=== PATIENT | female | born 1965 | race African-American/Black ===

== ENCOUNTER 2017-01-26 11:11 | Observation (INO) | payer OTHER, MEDICAID ==
[~2017-01-26] VITALS: Ht 162.6 cm; Wt 127.0 kg
[~2017-01-26 11:11] MED LIST: BENA20TA14 PO; LORA-655 PO
[2017-01-26 12:12] LABS: Basophils # (auto) 0 uL; Basophils % (auto) 0.6 % (0.0-2.0); Eosinophils # (auto) 0.1 uL; Eosinophils % (auto) 2.3 % (0.0-7.0); Hematocrit 40.6 % (36.0-46.0); Hemoglobin 13.6 g/dL (12.2-16.2); Mean Corpuscular Hemoglobin 27.4 pg (28.0-32.0); Mean Corpuscular Hgb Conc. 33.4 g/dL (32.0-36.0); Mean Corpuscular Volume 82.1 fL (80.0-100.0); Mean Platelet Volume 8.7 fL (6.9-10.8); Monocytes # (auto) 0.3 uL; Monocytes % (auto) 5.4 % (0.0-12.0); Neutrophils # (auto) 3.2 uL; Neutrophils % (auto) 56.7 % (37.0-80.0); Nucleated Red Blood Cells % 0.1 %; Platelet Count (auto) 286 10^3/uL (140-450); Red Cell Distribution Width 15.1 % (11.8-14.3); White Blood Cell 5.7 10^3/uL (4.4-10.8)
[2017-01-26 12:43] LABS: Urine Bilirubin Negative (Negative); Urine Blood 1+ /uL (Negative); Urine Color Yellow (Yellow); Urine Glucose Normal (Normal); Urine Ketone Negative (Negative); Urine Mucus FEW (None Seen); Urine Nitrite Negative (Negative); Urine RBC 2 /hpf (0 - 4); Urine Squamous Epithelial Cell FEW /hpf (<5); Urine Urobilinogen Normal (Negative)
[2017-01-26 12:47] LABS: Albumin 3.7 g/dL (3.4-5.0); Bilirubin, Total 0.5 mg/dL (0.2-1.0); Potassium 3.4 mmol/L (3.5-5.1); Total Protein 8.4 g/dL (6.4-8.2)
[2017-01-26] MEDS ORDERED: ONDANSETRON ODT 4 MG TAB PO ONE (17:45)
[2017-01-26 18:07] LABS: Magnesium 2.2 mg/dL (1.6-2.6)
[2017-01-26 18:11] VITALS: BP 122/78
[2017-01-26] MEDS ORDERED: PANTOPRAZOLE 40 MG TAB PO ONE (19:30)
== END 2017-01-26 20:27 | disposition home or self-care (01) | DRG 392 ==
LOC: ER 11:11 → OVERFLOW 17:37 → ER 19:35
PROVIDERS: ADMIT Family Medicine; ATTEND Family Medicine
DX: K29.50 Unspecified chronic gastritis without bleeding (principal); R16.0 Hepatomegaly, not elsewhere classified; I10 Essential (primary) hypertension; F41.9 Anxiety disorder, unspecified; Z82.49 Family history of ischemic heart disease and other diseases of the circulatory system
CPT/HCPCS: 36415; 71020; 76705; 80053; 81001; 82150; 83690; 83735; 85025; 93005; 99285; G0378; Q0162

== ENCOUNTER 2018-01-23 13:17 | Emergency (ER) | payer OTHER, MEDICAID ==
[~2018-01-23] VITALS: Ht 162.6 cm; Wt 131.1 kg
[2018-01-23] MEDS ORDERED: ASPirin 81 mg TAB PO ONE (13:30)
[2018-01-23 15:03] LABS: Basophils # (auto) 0 uL; Basophils % (auto) 0.4 % (0.0-2.0); Eosinophils # (auto) 0.2 uL; Eosinophils % (auto) 2.7 % (0.0-7.0); Hematocrit 41.2 % (36.0-46.0); Hemoglobin 13.8 g/dL (12.2-16.2); Lymphocytes # (auto) 1.8 uL; Lymphocytes % (auto) 24.9 % (10.0-50.0); Mean Corpuscular Hemoglobin 27.8 pg (28.0-32.0); Mean Corpuscular Hgb Conc. 33.4 g/dL (32.0-36.0); Mean Corpuscular Volume 83.2 fL (80.0-100.0); Monocytes # (auto) 0.4 uL; Neutrophils # (auto) 4.7 uL; Platelet Count (auto) 265 10^3/uL (140-450); Red Blood Cells 4.95 10^6/uL (4.0-5.20); Red Cell Distribution Width 14.6 % (11.8-14.3); White Blood Cell 7.1 10^3/uL (4.4-10.8)
[2018-01-23 15:29] LABS: Calcium 8.6 mg/dL (8.5-10.1); Chloride 104 mmol/L (98-107); Potassium 3.5 mmol/L (3.5-5.1); Sodium 140 mmol/L (136-145)
[2018-01-23 15:37] LABS: Alanine Aminotransferase 13 U/L (13-56); Albumin 3.5 g/dL (3.4-5.0); Alkaline Phosphatase 58 U/L (45-117); Anion Gap 7 (5-15); Aspartate Aminotransferase 9 U/L (15-37); BUN/Creatinine Ratio 16.1; Bilirubin, Total 0.2 mg/dL (0.2-1.0); Blood Urea Nitrogen 15 mg/dL (7-18); Carbon Dioxide 29 mmol/L (21-32); GFR African American 81 mL/min; GFR Non-African American 67 mL/min; Glucose 95 mg/dL (74-106); Magnesium 2.1 mg/dL (1.6-2.6); Total Protein 8.1 g/dL (6.4-8.2)
[2018-01-23 16:17] VITALS: BP 146/78
== END 2018-01-23 16:50 | disposition home or self-care (01) ==
LOC: ER 13:17
DX: R07.89 Other chest pain (principal); F41.9 Anxiety disorder, unspecified; I10 Essential (primary) hypertension; Z88.8 Allergy status to other drugs, medicaments and biological substances
CPT/HCPCS: 36415; 71046; 80053; 83735; 84484; 85025; 93005

== ENCOUNTER → 2019-03-14 | Day surgery (SDC) | payer OTHER, MEDICAID ==
[~2019-03-14] VITALS: Ht 162.6 cm; Wt 123.4 kg
[~2019-03-14] MED LIST changes: +BENA-26 PO; -BENA20TA14 PO; +BETAMETHASONE ACET (6MG/ML) 5ML VIAL ONE; +BUPIVACAINE W/ EPINEPH 0.25% INJ 50ML MDV ONE; +HYDR-531 PO; +HYDROmorphone HCL 2 MG/ML VL IV PRN; +KETOROLAC TROMETH 30 MG/ML 1ML VIAL IV ONE; -LORA-655 PO; +METOCLOPRAMIDE HCL 5MG/ml INJ 2ml VIAL IV PRN; +MIDAZOLAM HCL 1MG/1ML-2 ML VIAL ONE; +MORPHINE SULFATE 4 MG/ML SYR/VIAL IV PRN; +ONDANSETRON HCL 4 MG/2 ML VIAL ONE; +PANT40TA2 PO; +PROPOFOL 10 MG/ML 20 ML IV ONE; +ROCURONIUM 10MG/ML 10ML VIAL IV ONE; +SIMV-8 PO; +SODIUM CHLORIDE LOCK 10 ML ONE; +SUCCINYLCHOLINE CHLORIDE 20 MG/ML 10ML VIAL IV ONE; +SUCR1TAB38 PO; +THROAT LOZENGES(CEPASTAT) MT ONE; +ceFAZolin 1GM/50ML 50 ML IV ONE; +fentaNYL CITRATE 100 MCG/2 ML VL IV PRN; +fentaNYL CITRATE 100 MCG/2 ML VL ONE
[2019-03-14 14:15] VITALS: BP 111/63
== END | disposition home or self-care (01) ==
LOC: SUR 10:47
PROVIDERS: ATTEND Orthopaedic Surgery
DX: M24.562 Contracture, left knee (principal); E66.01 Morbid (severe) obesity due to excess calories; I10 Essential (primary) hypertension; E78.5 Hyperlipidemia, unspecified; F41.9 Anxiety disorder, unspecified; Z96.653 Presence of artificial knee joint, bilateral; Z90.710 Acquired absence of both cervix and uterus; Z98.890 Other specified postprocedural states; Z88.8 Allergy status to other drugs, medicaments and biological substances; Z91.018 Allergy to other foods; Z68.42 Body mass index [BMI] 45.0-49.9, adult
CPT/HCPCS: 27570; J0330; J0690; J0702; J2250; J2405; J2704; J3010

== ENCOUNTER 2021-01-08 10:32 | Emergency (ER) | payer OTHER, MEDICAID ==
[~2021-01-08] VITALS: Ht 162.6 cm; Wt 119.7 kg
[~2021-01-08 10:32] MED LIST changes: -BETAMETHASONE ACET (6MG/ML) 5ML VIAL ONE; -BUPIVACAINE W/ EPINEPH 0.25% INJ 50ML MDV ONE; -HYDROmorphone HCL 2 MG/ML VL IV PRN; -KETOROLAC TROMETH 30 MG/ML 1ML VIAL IV ONE; -METOCLOPRAMIDE HCL 5MG/ml INJ 2ml VIAL IV PRN; -MIDAZOLAM HCL 1MG/1ML-2 ML VIAL ONE; -MORPHINE SULFATE 4 MG/ML SYR/VIAL IV PRN; -ONDANSETRON HCL 4 MG/2 ML VIAL ONE; -PROPOFOL 10 MG/ML 20 ML IV ONE; -ROCURONIUM 10MG/ML 10ML VIAL IV ONE; -SODIUM CHLORIDE LOCK 10 ML ONE; -SUCCINYLCHOLINE CHLORIDE 20 MG/ML 10ML VIAL IV ONE; +SUCR1TAB22 PO; -SUCR1TAB38 PO; -THROAT LOZENGES(CEPASTAT) MT ONE; -ceFAZolin 1GM/50ML 50 ML IV ONE; -fentaNYL CITRATE 100 MCG/2 ML VL IV PRN; -fentaNYL CITRATE 100 MCG/2 ML VL ONE
[2021-01-08 10:44] VITALS: BP 138/70
[2021-01-08] MEDS ORDERED: ONDANSETRON ODT 4 MG TAB PO ONE (12:30)
[2021-01-08] MEDS ORDERED: ACETAMINOPHEN/CODEINE#3 (300/30mg) TAB PO ONE (12:30)
== END 2021-01-08 13:02 | disposition home or self-care (01) ==
LOC: ER 10:32
DX: S46.912A Strain of unspecified muscle, fascia and tendon at shoulder and upper arm level, left arm, initial encounter (principal); R07.89 Other chest pain; M77.8 Other enthesopathies, not elsewhere classified; M75.92 Shoulder lesion, unspecified, left shoulder; I10 Essential (primary) hypertension; Z90.710 Acquired absence of both cervix and uterus; Z88.8 Allergy status to other drugs, medicaments and biological substances; X58.XXXA Exposure to other specified factors, initial encounter; Y93.89 Activity, other specified; Y92.89 Other specified places as the place of occurrence of the external cause; Y99.8 Other external cause status
CPT/HCPCS: 29105; 73030; 93005

== ENCOUNTER 2021-04-30 08:25 | Emergency (ER) | payer OTHER, MEDICAID ==
[~2021-04-30] VITALS: Ht 162.6 cm; Wt 119.3 kg
[2021-04-30 08:35] VITALS: BP 155/84
== END 2021-04-30 11:51 | disposition left against medical advice (07) ==
LOC: ER 08:25
DX: M25.561 Pain in right knee (principal); Z53.21 Procedure and treatment not carried out due to patient leaving prior to being seen by health care provider
CPT/HCPCS: 73562

== ENCOUNTER → 2022-03-28 | Outpatient (CLI) | payer MEDICAID | END | disposition home or self-care (01) | LOC: Rad HDHVI 09:55 | PROVIDERS: ATTEND Internal Medicine Cardiovascular Disease | DX: R07.89 Other chest pain (principal); R06.02 Shortness of breath | CPT/HCPCS: 93306 ==

== ENCOUNTER → 2022-04-16 | Outpatient (CLI) | payer MEDICAID ==
[~2022-04-16] VITALS: Ht 162.6 cm; Wt 117.0 kg
== END | disposition home or self-care (01) ==
LOC: Rad HDHVI 08:55
PROVIDERS: ATTEND Internal Medicine Cardiovascular Disease
DX: R07.89 Other chest pain (principal); I10 Essential (primary) hypertension; E78.2 Mixed hyperlipidemia; E66.01 Morbid (severe) obesity due to excess calories; Z82.49 Family history of ischemic heart disease and other diseases of the circulatory system
CPT/HCPCS: 78452; 93017; 96374; A9500